=== PATIENT | female | born 1945 | race Caucasian/White ===

== ENCOUNTER 2020-08-23 19:25 | Emergency (ER) | payer OTHER | END 2020-08-23 21:13 | disposition left against medical advice (07) | LOC: ER1 19:25 | DX: R19.7 Diarrhea, unspecified (principal); R51.9 Headache, unspecified; R10.9 Unspecified abdominal pain; R11.0 Nausea; Z53.21 Procedure and treatment not carried out due to patient leaving prior to being seen by health care provider ==